=== PATIENT | female | born 1950 | race Two or more races ===

== ENCOUNTER 2024-03-27 05:35 | Day surgery (SDC) | payer MEDICARE, MEDICAID, SELFPAY ==
--- NOTE | 2024-03-25 07:00 | EKG_ITS ---
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
[2024-03-25 08:27] VITALS: BMI 37.2
[2024-03-25 09:48] LABS: Basophils % (Auto) 1 % (0-2.5); Eosinophils # (Auto) 0.1 Thou/mm3 (0.0-0.5); Eosinophils % (Auto) 1 % (0-10); Hematocrit 39.3 % (36.0-46.0); Hemoglobin 13.5 g/dL (12.0-16.0); Immature Granulocytes % (Auto) 0 % (0-0); Immature Granulocytes Auto 0.01 Thou/mm3 (0.00-0.00); Lymphocytes # (Auto) 1.7 Thou/mm3 (1.0-4.8); Lymphocytes % (Auto) 34 % (10-50); Mean Corpuscular HGB Conc 34.4 g/dl (31.0-37.0); Mean Corpuscular Hemoglobin 29.4 pg (25.0-35.0); Mean Corpuscular Volume 86 fL (80-100); Monocytes # (Auto) 0.4 Thou/mm3 (0.0-0.8); Monocytes % (Auto) 9 % (0-12); Neutrophils # (Auto) 2.8 Thou/mm3 (1.8-7.7); Neutrophils % (Auto) 55 % (37-80); Nucleated Red Blood Cell % 0 /100 WBC (0); Platelet Count 262 Thou/mm3 (140-440); RDW Standard Deviation 41.6 fL (36.4-46.3); Red Blood Count 4.59 Miln/mm3 (4.00-5.20)
[2024-03-25 09:54] LABS: Alanine Aminotransferase 19 U/L (10-49); Albumin, Serum 4.8 gm/dL (3.4-4.8); Albumin/Globulin Ratio 1.8 (1.2-2.2); Alkaline Phosphatase 71 U/L (46-116); Anion Gap 5 (7-16); Aspartate Amino Transferase 23 U/L (0-34); BUN/Creatinine Ratio 14 Ratio (12-20); Bilirubin,Total 0.4 mg/dL (0.3-1.2); Blood Urea Nitrogen 10 mg/dL (9-23); Calcium 9.9 mg/dL (8.3-10.6); Calcium (Corrected) 9.9 mg/dL (8.5-10.1); Chloride 101 mMol/L (98-107); Creatinine (Component) 0.7 mg/dL (0.6-1.3); Estimated Creatinine Clearance 60.2 mL/min (>60); Globulin 2.7 gm/dL (2.3-3.5); Glucose 112 mg/dL (74-106); Osmolality,Calculated 271 (275-295); Potassium 4.4 mMol/L (3.4-5.1); Sodium 136 mMol/L (136-145); Total Protein 7.5 gm/dL (5.7-8.2); eGFR > 60 See Note
[2024-03-25 10:08] LABS: Partial Thromboplastin Time 26.8 Seconds (22.0-36.0); Prothrombin Time 10.9 Seconds (9.0-12.2)
[2024-03-27] VITALS (8 sets, daily range): BP systolic 119–148; BP diastolic 65–90; PULSE 63–84; RESP 12–17; TEMP 36.1–36.9; O2SAT 95–100; BMI 36.8
[2024-03-27] MEDS: RINGERS LACTATED 1000 ML 1,000 ML 20 ML IV (06:30)
--- NOTE | 2024-03-27 08:59 | SUR.PHASEI ---
pt received from OR in recovery bay 1. pt asleep but responds to voice, breathing unlabored on 6l oxymask. v/s stable. pt dressing to left lower lower extremity cdi. report received from Martha LOMELI and Jesse GOMEZ.
--- NOTE | 2024-03-27 08:59 | PD.SUROPNT ---
Date of Procedure 03/27/24 Pre Op Diagnosis Symptomatic varicose veins left lower extremity Post Op Diagnosis Same as preop diagnosis Procedure Varicose vein excisions left lower extremity through 42 incisions Findings All marked varicose veins were either removed or disrupted Procedure Description With the patient standing in the preop area all varicose veins to be removed or disrupted were marked with a sharpie pen in the left leg. The patient was then brought to the operating room and under general anesthesia the left lower extremity sterilely prepped and draped. A timeout was performed. The varicose veins were removed by making a small skin amalia in the marked areas with a #11 blade then bluntly enlarging this incision with a mosquito clamp and sequentially grasping and removing or disrupting the veins. After all marked veins were either removed or disrupted hemostasis was obtained and and the wounds and then the leg was cleaned. The incisions were reapproximated with Steri-Strips and a sterile gauze wrap was applied followed by Coban. The patient woke up from anesthesia was moved recovery in stable condition. Anesthesia other (Laryngeal mask anesthesia) Pathology / specimen Other (Varicose veins left lower extremity) Pathology comment: Varicose veins left lower extremity Estimated Blood Loss 120 Condition Stable Disposition PACU Surgeon Iván Elder MD Surgical Staff Operation Date: 03/27/24 07:30 Case Staff Anesthesiologist: Henry Hernandez RN First Assistant: Josie Flores
--- NOTE | 2024-03-27 09:25 | SUR.PHASEI ---
pt able to tolerate oral fluids without difficulty swallowing or nausea/vomiting.
[2024-03-27] MEDS: fentaNYL CIT INJ 50 mCg/ML AMP 2ML 25 MCG IV (09:28)
--- NOTE | 2024-03-27 10:19 | SUR.PHASEII ---
pt awake and alert, breathing unlabored on room air. v/s stable. pt dressing to left lower extremity cdi. pt able to ambulate to wheelchair with steady gait. d/c instructions given with granddaughter Amara in room, all questions answered. pt d/c via wheelchair with all belongings.
== END 2024-03-27 10:19 | disposition home or self-care (01) ==
PROVIDERS: Anesthesiology; PCP Physician Assistant; Referring Provider Surgery Vascular Surgery; Visit Provider Surgery Vascular Surgery
PROC: (CPT 37785; principal; 2024-03-27 07:30)
DX: I83.812 Varicose veins of left lower extremity with pain (principal); Z01.810 Encounter for preprocedural cardiovascular examination; E78.00 Pure hypercholesterolemia, unspecified; E11.9 Type 2 diabetes mellitus without complications; K21.9 Gastro-esophageal reflux disease without esophagitis
CPT/HCPCS: 37766; 37765; 36415; 80053; 85025; 85610; 85730; 93005; A4649; J0131; J0690; J1100; J1885; J2250; J2371; J2405; J2704; J3010; J7120

== ENCOUNTER → 2024-05-16 | Outpatient (CLI) | payer MEDICARE, SELFPAY ==
--- NOTE | 2024-05-16 13:45 | XR_ITS ---
Examination: Screening digital mammography, bilateral Computer aided detection 3-D breast Tomosynthesis, bilateral Date and time of exam: May 16, 2024 1413 hours Compared to April 24, 2023 Indication: Screening Technique: Nonmagnified MLO, CC views of the breasts to been obtained, reconstructed from 3-D Tomosynthesis images. R2 computer aided detection program utilized for evaluation of suspicious masses and/or abnormal calcifications. 3-D Tomosynthesis images obtained. Findings: Scattered areas of fibroglandular density. 8 mm focal asymmetry upper outer right breast 10 mm focal asymmetry outer left breast anterior depth 8.6 cm from the nipple Impression: BI-RADS Category 0: Incomplete: Need additional imaging evaluation 8 mm focal asymmetry upper outer right breast, recommend follow-up spot tomographic views 10 mm focal asymmetry outer left breast anterior depth 8.6 cm from the nipple, recommend follow-up spot tomographic views upper outer quadrant left breast Recommend bilateral breast sonography to complete the workup
== END | disposition home or self-care (01) ==
PROVIDERS: PCP Physician Assistant; Referring Provider Physician Assistant; Visit Provider Physician Assistant
DX: Z12.31 Encounter for screening mammogram for malignant neoplasm of breast (principal); R92.8 Other abnormal and inconclusive findings on diagnostic imaging of breast; N64.89 Other specified disorders of breast
CPT/HCPCS: 77063; 77067

== ENCOUNTER → 2025-01-01 | Outpatient (CLI) | payer MEDICARE, MEDICAID, SELFPAY ==
--- NOTE | 2025-01-01 15:15 | XR_ITS ---
Examination: Breast ultrasound complete, bilateral Date and time of exam: December 24, 2024 at 1519 hours INDICATIONS: Mammogram May 16, 2024 8mm focal asymmetry upper outer right breast 10 mm focal asymmetry outer left breast Technique: Real-time grayscale ultrasonographic imaging bilateral breasts, including all 4 quadrants as well as nipple retroareolar and axillary regions. Findings: Sonographic images right breast 12:00 nodule circumscribed 5 x 6 mm 11:00 nodule circumscribed 6 x 8 mm Sonographic images left breast 12:00 nodule circumscribed 4 x 6 mm 12:00 nodule circumscribed 5 x 4 mm 2:00 nodule lobular margins with shadowing 9 x 7 mm IMPRESSION: BI-RADS Category 3: Probably benign findings Recommend 1 additional 6 month bilateral breast sonography follow-up to document stability of nodules described above
== END | disposition home or self-care (01) ==
LOC: CDIM 15:08
PROVIDERS: PCP Physician Assistant; Referring Provider Physician Assistant; Visit Provider Physician Assistant
DX: N63.25 Unspecified lump in the left breast, overlapping quadrants (principal); N63.15 Unspecified lump in the right breast, overlapping quadrants; N63.21 Unspecified lump in the left breast, upper outer quadrant; N63.11 Unspecified lump in the right breast, upper outer quadrant
CPT/HCPCS: 76641

== ENCOUNTER 2025-03-30 13:37 | Emergency (ER) | payer MEDICARE, MEDICAID, SELFPAY ==
[2025-03-30 13:50] VITALS: BP 124/80; PULSE 66; RESP 18; TEMP 36.9; O2SAT 100; BMI 32.8
--- NOTE | 2025-03-30 14:03 | PD.EDANIML ---
ED Animal Bite RME/HPI General Chief Complaint: Animal Bite Stated Complaint: ANIMAL BITE R) HAND Time Seen by Provider: 03/30/25 13:47 Source: patient Arrival date/time: 03/30/25 13:37 74-year-old female with a history of diabetes, hypothyroidism, presents to the emergency room with a chief complaint of a dog bite to her right hand x 3 days. Mode of arrival: ambulatory Limitations: no limitations Related Data Home Medications ?Medication ?Instructions ?Recorded ?Confirmed aspirin 81 mg tablet,delayed 81 mg PO DAILY 03/25/24 03/27/24 release atorvastatin 20 mg tablet 20 mg PO DAILY 03/25/24 03/27/24 benazepril 5 mg tablet 5 mg PO DAILY 03/25/24 03/27/24 donepezil 10 mg tablet 10 mg PO DAILY 03/25/24 03/27/24 ergocalciferol (vitamin D2) 1,250 1,250 mcg PO QWEEK 03/25/24 03/27/24 mcg (50,000 unit) capsule ibuprofen 600 mg tablet 600 mg PO Q8HR PRN Pain 03/25/24 03/27/24 levothyroxine 100 mcg tablet 100 mcg PO QDAY 03/25/24 03/27/24 metformin 500 mg tablet 500 mg PO DAILY 03/25/24 03/27/24 Previous Rx's ?Medication ?Instructions ?Recorded amoxicillin 875 mg-potassium 1 tab PO BID 7 days #14 tabs 03/30/25 clavulanate 125 mg tablet Allergies Allergy/AdvReac Type Severity Reaction Status Date / Time acetaminophen (From Vicodin) Allergy Verified 03/30/25 13:41 hydrocodone (From Vicodin) Allergy Verified 03/30/25 13:41 VICODIN Allergy Uncoded 03/30/25 13:41 Review of Systems Review of Systems Systems Reviewed: All systems reviewed, normal except as documented Constitutional Constitutional: Reports system reviewed and no additional complaints, except as documented, Denies fatigue, Denies fever(s), Denies headache(s) and Denies weakness Eyes Eyes: Reports system reviewed and no additional complaints, except as documented, Denies blurry vision and Denies change in vision ENT Ears, Nose, Mouth, and Throat: Reports system reviewed and no additional complaints, except as documented, Denies otalgia, Denies headache(s), Denies nasal congestion, Denies throat swelling and Denies vertigo Cardiovascular Cardiovascular: Reports system reviewed and no additional complaints, except as documented, Denies chest pain, Denies dyspnea and Denies dyspnea on exertion Respiratory Respiratory: Reports system reviewed and no additional complaints, except as documented, Denies chest congestion, Denies cough, Denies dyspnea, Denies dyspnea on exertion and Denies wheezing Gastrointestinal Gastrointestinal: Reports system reviewed and no additional complaints, except as documented, Denies abdominal pain, Denies cramping, Denies nausea and Denies vomiting Genitourinary Genitourinary: Reports system reviewed and no additional complaints, except as documented Musculoskeletal Musculoskeletal: Reports system reviewed and no additional complaints, except as documented and Denies back pain Integumentary/Breasts Skin/Breast: Reports system reviewed and no additional complaints, except as documented and Reports wounds Neurologic Neurologic: Reports system reviewed and no additional complaints, except as documented, Denies confusion, Denies headache(s), Denies lack of coordination, Denies vertigo and Denies weakness Psychiatric Psychiatric: Reports system reviewed and no additional complaints, except as documented, Denies anxiety, Denies confusion, Denies depression, Denies paranoia, Denies suicidal ideation and Denies tactile hallucinations Endocrine Endocrine: Reports system reviewed and no additional complaints, except as documented and Denies fatigue Hematologic/Lymphatic Hematologic/Lymphatic: Reports system reviewed and no additional complaints, except as documented and Denies lymphadenopathy Allergic/Immunologic Allergic/Immunologic: Reports system reviewed and no additional complaints, except as documented, Denies throat swelling, Denies urticaria and Denies wheezing Past Medical History Past Medical History NEUROLOGIC: Negative Neurological Disorders or Seizures CARDIAC: Positive Cardiac Disorders, Hypercholesterolemia, Hypertension and Varicose Veins; Negative Congestive Heart Failure RESPIRATORY: Negative Chronic Obstructive Pulmonary Disease (COPD) GASTROINTESTINAL: Positive Gastrointestinal Disorders and Obesity; Negative Hepatitis GENITOURINARY: Negative Genitourinary Disorders or Renal Disease REPRODUCTIVE: Positive Previous Pregnancies MUSCULOSKELETAL: Positive Musculoskeletal Disorders, Arthritis and Osteoporosis ENT: Positive Cataracts ENDOCRINE: Positive Endocrine Disorders, Diabetes Mellitus Type 2 and Hypothyroidism; Negative Diabetes Mellitus Type 1 HEMATOLOGIC: Negative Blood Disorders OTHER HISTORY: Positive Hospitalization, Blood Transfusions and Chicken Pox; Negative Autoimmune Disease, Shingles, Blood Transfusion Reaction, Anesthesia Reactions or Cancer Family History FAMILY HISTORY: Positive Family Cancer; Negative Family Psychiatric Problems, Family Respiratory Disorders, Family Cardiac Disorders, Family Gastrointestinal Problems, Family Surgery or Family Anesthesia Reaction Surgical History SURGICAL: Positive Section (x2) Social History SMOKING STATUS: Never smoker SECOND HAND EXPOSURE: No SUBSTANCE USE: does not use ED Exam General Limitations: Present no limitations General appearance: Present alert and in no apparent distress Head Head exam: Present atraumatic Eye Eye exam: Present normal appearance, PERRL and EOMI ENT ENT exam: Present normal exam, normal oropharynx and mucous membranes moist Neck Neck exam: Present normal inspection, full ROM and trachea midline Chest Chest inspection: Present normal inspection and symmetric chest wall rise Respiratory Respiratory exam: Present normal lung sounds bilaterally Cardiovascular Cardiovascular exam: Present regular rate, normal rhythm and normal heart sounds Abdominal Exam Abdominal exam: Present soft and normal bowel sounds Extremities Exam Extremities exam: Present normal inspection and full ROM Back Exam Back exam: Present normal inspection and full ROM Neurological Exam Neurological exam: Present alert, oriented X3 and CN II-XII intact Psychiatric Psychiatric exam: Present normal affect and normal mood Skin Skin exam: Present warm, dry, intact and normal color Course Quality Measures none Orders Category Date Time Status TET,DIP/PERT AC (Adult)-Tdap [Boostrix Adult (Tdap) Med 03/30/25 13:55 Discontinued Vacc] 0.5 ml IMI .ONCE ONE Vital Signs Vital signs: Vital Signs Temperature 98.5 F 03/30/25 13:50 Pulse Rate 66 03/30/25 13:50 Respiratory Rate 18 03/30/25 13:50 Blood Pressure 124/80 03/30/25 13:50 Pulse Oximetry (%) 100 03/30/25 13:50 Oxygen Delivery Method Room Air 03/30/25 13:50 Animal Bite MDM Narrative MDM Narrative:: 74-year-old female with a history of diabetes, hypothyroidism, presents to the emergency room with a chief complaint of a dog bite to her right hand x 3 days. Patient is hemodynamically stable and in no apparent distress. Patient has a small abrasion to her right hand. Patient states she got bit by her dog 3 days ago while trying to split up her dogs from fighting. Patient states that she managed her dog bite with ice. Currently there is no swelling there is no erythema there is no signs of infection. Patient states she was sent to the emergency room by her primary care provider to receive a tetanus vaccination as they were out in the clinic. Patient was discharged and educated to follow-up with primary care provider in the next 24 to 48 hours and return to the emergency room for any evidence of worsening signs or symptoms Patient data External records reviewed:: [facility] previous records Clinical information provided by:: patient Social determinants that could affect healthcare access:: none Patient has the following chronic illnesses:: No chronic How is presenting disease/condition affected by chronic disease/condition?: no chronic disease Evaluation data The following diagnostics were reviewed and interpreted by me:: lab results and radiology exam(s) Lab and/or radiology exams considered but not ordered:: Labs and radiology exams considered and ordered Interpretation Summary: N/A Medications / Prescriptions Medications or Prescriptions considered but not ordered:: Medication given Medication administrations:: Medication Administration History Discontinued Medications Diphtheria/Tetanus/Acell Pertussis (Diphth,Pertuss(Acell),Tet Vac 0.5 Ml Syr- Adult) 0.5 ml IMi .ONCE ONE Stop: 03/30/25 13:56 Medication given Consultations Consultation(s) initiated? (list below): No Diagnosis Differential diagnosis animal bite: bite by animal, cat bite and dog bite Most likely diagnosis given after review of the tests above:: Dog bite Admission Indicated Admission indicated?: not indicated Admission Request Was there a request for admission?: No Disposition Plan Disposition Plan: Discharge Discharge Attestation Discharge Attestation: The patient and all family members were given an opportunity to ask questions and understood the discharge instructions. Discharge instructions specifically effects, indications for sooner follow up or return to the emergency department, and the expected course of current diagnosis. Patient condition: Stable Discharge Plan Plan Patient Disposition: HOME (Self Care) Discharge Disposition comment: Stable Prescriptions/Referrals Prescriptions/Med Rec: New amoxicillin-pot clavulanate 875-125 mg tablet 1 tab PO BID 7 Days Qty: 14 0RF No Action metformin 500 mg tablet 500 mg PO DAILY atorvastatin 20 mg tablet 20 mg PO DAILY benazepril 5 mg tablet 5 mg PO DAILY donepezil 10 mg tablet 10 mg PO DAILY aspirin 81 mg tablet,delayed release (DR/EC) 81 mg PO DAILY levothyroxine 100 mcg Tablet 100 mcg PO QDAY ergocalciferol (vitamin D2) 1,250 mcg (50,000 unit) capsule 1,250 mcg PO QWEEK ibuprofen 600 mg tablet 600 mg PO Q8HR PRN (Reason: Pain) Problem List Clinical Impression: Dog bite Patient/Caregiver Discharge Instructions Education Materials: ED Dog Bite Additional Instructions: Por favor, consulte con hoyos m?dico de cabecera en las pr?ximas 24 a 48 horas. Los antibi?ticos se env?an a hoyos farmacia; rec?jalos y t?melos seg?n lo indicado. Hoyos vacuna contra el t?tanos se actualiz?. Si observa cualquier evidencia de empeoramiento de los signos o s?ntomas, regrese a la joselyn de emergencias de inmediato. Print Language: Slovenian Stand Alone Forms: [facility]ka Award Info., Work/School Release, Patient Portal Info Letter
[2025-03-30] MEDS: DIPHTH,PERTUSS(ACELL),TET VAC 0.5 ML SYR- ADULT IMi (14:09)
== END 2025-03-30 14:17 | disposition home or self-care (01) ==
LOC: SERX 14:31
PROVIDERS: Emergency Provider Emergency Medicine; PCP Physician Assistant
DX: S60.511A Abrasion of right hand, initial encounter (principal); W54.0XXA Bitten by dog, initial encounter; Z23 Encounter for immunization
CPT/HCPCS: 90471; 90715; 99281